=== PATIENT | male | born 1945 | race Caucasian/White ===

== ENCOUNTER 2016-11-22 09:49 | Inpatient (IN) | payer MEDICARE ==
[~2016-11-22] VITALS: Ht 177.8 cm; Wt 117.4 kg
[~2016-11-22 09:49] MED LIST: ASPI-496 PO; ATOR20TA9 PO; BACITRACIN 50,000 UNIT ONE; BUPIVACAINE/PF-EPI 0.5% 1:200K ONE; CANA300T PO; CHOL20003 PO; FENO160T PO; INSU100I18 SQ-INSULIN; INSU100V13 SQ-INSULIN; LIRA0.6P SQ; THROMBIN 5,000 UNIT VIAL TP ONE; [UNRECOGNIZED DRUG - CODE] PO
[2016-11-22] MEDS ORDERED: LACTATED RINGERS 1,000 ML IV SCH (10:22)
[2016-11-22] MEDS ORDERED: METOCLOPRAMIDE 5 MG/ML, 2ML ONE (10:40)
[2016-11-22] MEDS ORDERED: ONDANSETRON 2MG/ML, 2ML ONE (10:40)
[2016-11-22] MEDS ORDERED: DEXAMETHASONE 4 MG/ML, 1ML ONE (10:40)
[2016-11-22] MEDS ORDERED: PHENYLEPHRINE 10 MG/ML ONE (10:40)
[2016-11-22] MEDS ORDERED: CEFAZOLIN 1,000 MG ONE (10:40)
[2016-11-22] MEDS ORDERED: ROCURONIUM 10 MG/ML ONE (10:40)
[2016-11-22] MEDS ORDERED: FENTANYL PF 250 MCG/5ML ONE (13:34)
[2016-11-22] MEDS ORDERED: MIDAZOLAM 1 MG/ML, 2ML ONE (13:34)
[2016-11-22] MEDS ORDERED: BUPIVACAINE/PF-EPI 0.5% 1:200K ONE (15:37)
[2016-11-22] MEDS ORDERED: HYDROmorphone 2 MG/ML, 1ML ONE ×2 (16:00→17:05)
[2016-11-22] MEDS ORDERED: ACETAMINOPHEN 325 MG TABLET PO PRN (17:00)
[2016-11-22] MEDS ORDERED: BISACODYL 10 MG SUPP PR PRN (17:00)
[2016-11-22] MEDS ORDERED: OXYcodone 5 MG/5 ML ORAL.SOL UDC PO PRN (17:00)
[2016-11-22] MEDS ORDERED: ONDANSETRON 2MG/ML, 2ML IVPush PRN (17:00)
[2016-11-22] MEDS ORDERED: HYDROcodone/APAP 5/325 TABLET PO PRN (17:00)
[2016-11-22] MEDS ORDERED: HYDROmorphone PCA 30 MG/30 ML IV PRN (17:00)
[2016-11-22] MEDS ORDERED: FENTANYL PF 100 MCG/2ML IV PRN (17:00)
[2016-11-22] MEDS ORDERED: hydrALAzine 20 MG/ML, 1ML IV PRN (17:00)
[2016-11-22] MEDS ORDERED: HYDROmorphone 1 MG/ML, 1ML IV PRN (17:00)
[2016-11-22] MEDS ORDERED: HYDROcodone/APAP 10/325 MG TABLET PO PRN (17:00)
[2016-11-22] MEDS ORDERED: LABETALOL 5MG/ML, 20ML IV PRN (17:00)
[2016-11-22] MEDS ORDERED: PROMETHAZINE 25 MG/ML, 1ML IM PRN (17:00)
[2016-11-22] MEDS ORDERED: PROMETHAZINE 25 MG/ML, 1ML IV PRN (17:00)
[2016-11-22] MEDS ORDERED: MAGNESIUM HYDROXIDE 8%, 30ML UDC PO PRN (17:00)
[2016-11-22] MEDS ORDERED: PHARMACY MAY ADJ FOR RENAL FX MC PRN (17:00)
[2016-11-22] MEDS ORDERED: MEPERIDINE/PF 25MG/0.5ML IVPush PRN (17:00)
[2016-11-22] MEDS ORDERED: HYDROmorphone PCA 30 MG/30 ML ONE (17:15)
[2016-11-22] MEDS: INSULIN REGULAR 100 UNITS/ML, 3ML VIAL SQ-INSULIN SCH (21:00)
[2016-11-22] MEDS: SODIUM CHLORIDE FLUSH 10ML SYR IVF SCH (21:00)
[2016-11-22] MEDS ORDERED: INSULIN DETEMIR SQ-INSULIN SCH (21:00)
[2016-11-22] MEDS ORDERED: ATORVASTATIN 20 MG TABLET PO SCH (21:00)
[2016-11-22] MEDS: NS + 20MEQ KCL 1,000 ML IV SCH (21:10)
[2016-11-22] MEDS: INSULIN DETEMIR 100 UNITS/ML, PEN SQ-INSULIN SCH (22:27)
[2016-11-22 23:57] VITALS: BP 129/69
[2016-11-23] MEDS: CEFAZOLIN PMX 1GM/50ML 50 ML IVPB SCH ×2 (00:03→08:04)
[2016-11-23] MEDS: NS + 20MEQ KCL 1,000 ML IV SCH ×4 (03:00→21:19)
[2016-11-23 03:35] VITALS: BP 151/85
[2016-11-23 07:04] VITALS: BP 132/45
[2016-11-23] MEDS: INSULIN DETEMIR 100 UNITS/ML, PEN SQ-INSULIN SCH ×2 (08:00→22:19)
[2016-11-23] MEDS: INSULIN ASPART 100 UNITS/ML, PEN SQ-INSULIN SCH ×3 (08:01→16:00)
[2016-11-23] MEDS: INSULIN REGULAR 100 UNITS/ML, 3ML VIAL SQ-INSULIN SCH ×4 (08:04→21:20)
[2016-11-23] MEDS: FENOFIBRATE 160 MG HOMEMEDPO SCH (09:00)
[2016-11-23] MEDS: SODIUM CHLORIDE FLUSH 10ML SYR IVF SCH ×2 (09:00→21:19)
[2016-11-23] MEDS: Liraglutide (Victoza 2-Pak) 1.2 MG SQ SCH (09:00)
[2016-11-23] MEDS: ATORVASTATIN 20 MG TABLET PO SCH (09:22)
[2016-11-23] MEDS: AMLODIPINE 5 MG TABLET PO SCH (09:22)
[2016-11-23] MEDS: SENNA/DOCUSATE TABLET PO SCH (09:22)
[2016-11-23] MEDS: ONDANSETRON 2MG/ML, 2ML IVPush PRN (12:15)
[2016-11-23 13:46] VITALS: BP 151/64
[2016-11-23] MEDS: TIZANIDINE 4MG TABLET PO PRN (18:23)
[2016-11-23 20:30] VITALS: BP 142/61
[2016-11-24 01:10] VITALS: BP 137/58
[2016-11-24] MEDS: TIZANIDINE 4MG TABLET PO PRN (01:23)
[2016-11-24] MEDS: ONDANSETRON 2MG/ML, 2ML IVPush PRN ×3 (02:17→19:31)
[2016-11-24 06:51] VITALS: BP 128/64
[2016-11-24] MEDS: NS + 20MEQ KCL 1,000 ML IV SCH ×2 (06:51→16:14)
[2016-11-24] MEDS: INSULIN REGULAR 100 UNITS/ML, 3ML VIAL SQ-INSULIN SCH ×4 (07:00→21:26)
[2016-11-24] MEDS: INSULIN ASPART 100 UNITS/ML, PEN SQ-INSULIN SCH ×3 (07:00→16:52)
[2016-11-24] MEDS: SENNA/DOCUSATE TABLET PO SCH (08:28)
[2016-11-24] MEDS: INSULIN DETEMIR 100 UNITS/ML, PEN SQ-INSULIN SCH ×2 (08:30→21:26)
[2016-11-24] MEDS: TIZANIDINE 4MG TABLET PO SCH ×3 (08:30→23:20)
[2016-11-24] MEDS: Liraglutide (Victoza 2-Pak) 1.2 MG SQ SCH (09:00)
[2016-11-24] MEDS: FENOFIBRATE 160 MG HOMEMEDPO SCH (09:00)
[2016-11-24] MEDS: SODIUM CHLORIDE FLUSH 10ML SYR IVF SCH ×2 (09:00→19:31)
[2016-11-24] MEDS: DEXAMETHASONE 4 MG/ML, 1ML IVPush SCH ×3 (11:06→23:03)
[2016-11-24] MEDS: ATORVASTATIN 20 MG TABLET PO SCH (11:06)
[2016-11-24] MEDS: AMLODIPINE 5 MG TABLET PO SCH (11:06)
[2016-11-24 14:15] VITALS: BP 139/58
[2016-11-24 19:35] VITALS: BP 152/73
[2016-11-25 01:45] VITALS: BP 140/68
[2016-11-25] MEDS: NS + 20MEQ KCL 1,000 ML IV SCH ×2 (03:00→11:50)
[2016-11-25] MEDS: DEXAMETHASONE 4 MG/ML, 1ML IVPush SCH ×4 (05:52→23:25)
[2016-11-25] MEDS: TIZANIDINE 4MG TABLET PO SCH ×4 (05:53→23:24)
[2016-11-25 06:37] VITALS: BP 150/70
[2016-11-25] MEDS: INSULIN REGULAR 100 UNITS/ML, 3ML VIAL SQ-INSULIN SCH ×4 (07:00→22:05)
[2016-11-25] MEDS: INSULIN DETEMIR 100 UNITS/ML, PEN SQ-INSULIN SCH ×2 (08:00→22:06)
[2016-11-25] MEDS: FENOFIBRATE 160 MG HOMEMEDPO SCH (08:13)
[2016-11-25] MEDS: Liraglutide (Victoza 2-Pak) 1.2 MG SQ SCH (08:14)
[2016-11-25] MEDS: INSULIN ASPART 100 UNITS/ML, PEN SQ-INSULIN SCH ×3 (08:18→17:08)
[2016-11-25] MEDS: ATORVASTATIN 20 MG TABLET PO SCH (08:19)
[2016-11-25] MEDS: AMLODIPINE 5 MG TABLET PO SCH (08:19)
[2016-11-25] MEDS: SENNA/DOCUSATE TABLET PO SCH (08:19)
[2016-11-25] MEDS: SODIUM CHLORIDE FLUSH 10ML SYR IVF SCH ×2 (08:20→22:47)
[2016-11-25] MEDS: HYDROmorphone 2MG TABLET PO PRN (08:42)
[2016-11-25 14:33] VITALS: BP 130/58
[2016-11-25 20:00] VITALS: BP 153/72
[2016-11-25] MEDS: ONDANSETRON 2MG/ML, 2ML IVPush PRN ×2 (22:12→22:47)
[2016-11-26] MEDS: NS + 20MEQ KCL 1,000 ML IV SCH ×3 (01:08→21:00)
[2016-11-26 02:34] VITALS: BP 151/69
[2016-11-26] MEDS: HYDROmorphone 2MG TABLET PO PRN (04:33)
[2016-11-26] MEDS: TIZANIDINE 4MG TABLET PO SCH ×4 (05:39→23:03)
[2016-11-26] MEDS: DEXAMETHASONE 4 MG/ML, 1ML IVPush SCH ×4 (05:39→23:05)
[2016-11-26 07:01] VITALS: BP 118/55
[2016-11-26] MEDS: INSULIN REGULAR 100 UNITS/ML, 3ML VIAL SQ-INSULIN SCH ×5 (07:30→21:00)
[2016-11-26] MEDS: INSULIN DETEMIR 100 UNITS/ML, PEN SQ-INSULIN SCH ×2 (08:09→21:58)
[2016-11-26] MEDS: INSULIN ASPART 100 UNITS/ML, PEN SQ-INSULIN SCH ×3 (08:09→16:29)
[2016-11-26] MEDS: AMLODIPINE 5 MG TABLET PO SCH (08:09)
[2016-11-26] MEDS: SENNA/DOCUSATE TABLET PO SCH (08:10)
[2016-11-26] MEDS: FENOFIBRATE 160 MG HOMEMEDPO SCH (08:14)
[2016-11-26] MEDS: SODIUM CHLORIDE FLUSH 10ML SYR IVF SCH ×2 (08:15→21:59)
[2016-11-26] MEDS: Liraglutide (Victoza 2-Pak) 1.2 MG SQ SCH (08:16)
[2016-11-26] MEDS: ATORVASTATIN 20 MG TABLET PO SCH (08:17)
[2016-11-26] MEDS ORDERED: BISACODYL 10 MG SUPP PR ONE (10:00)
[2016-11-26 12:55] VITALS: BP 152/79
[2016-11-26 19:28] VITALS: BP 145/69
[2016-11-27 01:23] VITALS: BP 138/74
[2016-11-27] MEDS: TIZANIDINE 4MG TABLET PO SCH ×2 (05:16→11:06)
[2016-11-27] MEDS: DEXAMETHASONE 4 MG/ML, 1ML IVPush SCH ×2 (05:16→11:06)
[2016-11-27] MEDS: INSULIN REGULAR 100 UNITS/ML, 3ML VIAL SQ-INSULIN SCH ×2 (07:00→12:16)
[2016-11-27 07:31] VITALS: BP 146/73
[2016-11-27] MEDS: INSULIN DETEMIR 100 UNITS/ML, PEN SQ-INSULIN SCH (08:14)
[2016-11-27] MEDS: INSULIN ASPART 100 UNITS/ML, PEN SQ-INSULIN SCH ×2 (08:14→12:17)
[2016-11-27] MEDS: ATORVASTATIN 20 MG TABLET PO SCH (08:21)
[2016-11-27] MEDS: SENNA/DOCUSATE TABLET PO SCH (08:21)
[2016-11-27] MEDS: AMLODIPINE 5 MG TABLET PO SCH (08:21)
[2016-11-27] MEDS: FENOFIBRATE 160 MG HOMEMEDPO SCH (08:22)
[2016-11-27] MEDS: Liraglutide (Victoza 2-Pak) 1.2 MG SQ SCH (08:22)
[2016-11-27] MEDS: SODIUM CHLORIDE FLUSH 10ML SYR IVF SCH (08:23)
[2016-11-27] MEDS ORDERED: TIZA4TAB PO (08:34)
[2016-11-27] MEDS ORDERED: METH4TAB2 PO (08:34)
[2016-11-27 13:10] VITALS: BP 130/78
== END 2016-11-27 13:25 | disposition home health service (06) | DRG 516 ==
LOC: OUT 09:49 → ORIP 16:48 → 4NOR 19:04 → OBSVTOIN 11-23 11:13
PROVIDERS: ADMIT Neurological Surgery; ATTEND Neurological Surgery
PROC: 01NR0ZZ Release Sacral Nerve, Open Approach (ICD-10-PCS; 2016-11-22)
PROC: 00Q20ZZ Repair Dura Mater, Open Approach (ICD-10-PCS; 2016-11-22)
PROC: 01NB0ZZ Release Lumbar Nerve, Open Approach (ICD-10-PCS; principal; 2016-11-22 13:00)
DX: M48.06 Spinal stenosis, lumbar region (principal); G96.11 Dural tear; E11.9 Type 2 diabetes mellitus without complications; Z87.891 Personal history of nicotine dependence; Z72.89 Other problems related to lifestyle; R11.0 Nausea
CPT/HCPCS: 72100; 82962; G0378; J0690; J1100; J1170; J1815; J2250; J2405; J3010; J3480; C1781; J2370; J2765; J7120

== ENCOUNTER 2018-12-21 14:06 | Outpatient (CLI) | payer MEDICARE ==
[~2018-12-21 14:06] MED LIST changes: +AMLO-262 PO; +ASPI325T17 PO; +ATOR20TA37 PO; -ATOR20TA9 PO; -BACITRACIN 50,000 UNIT ONE; +BENA20TA54 PO; -BUPIVACAINE/PF-EPI 0.5% 1:200K ONE; +CHOL2000 PO; -CHOL20003 PO; +DAPA10TA PO; +INSU100V13 SC; +LIRA0.6P PO; +METH4TAB2 PO; -THROMBIN 5,000 UNIT VIAL TP ONE; +TIZA4TAB PO; -[UNRECOGNIZED DRUG - CODE] PO
[2018-12-21] MEDS ORDERED: GADOBUTROL 15 MMOL/15 ML VIAL ONE (14:45)
== END 2018-12-21 23:59 | disposition home or self-care (01) ==
LOC: RAD 14:06
PROVIDERS: ATTEND Family Medicine
DX: M47.816 Spondylosis without myelopathy or radiculopathy, lumbar region (principal); M48.061 Spinal stenosis, lumbar region without neurogenic claudication; G31.89 Other specified degenerative diseases of nervous system
CPT/HCPCS: 70553; 72158; A9585